=== PATIENT | male | born 1965 | race Caucasian/White ===

== ENCOUNTER 2019-07-30 12:56 | Inpatient (IN) | payer OTHER ==
[~2019-07-30] VITALS: Ht 177.8 cm; Wt 152.0 kg
[2019-07-30 12:57] VITALS: BP 138/93
[2019-07-30 13:28] LABS: ABSOLUTE NEUTROPHILS 5.7 thou/uL (1.4-8.2); BASOPHILS 0.5 % (0.0-2.0); EOSINOPHILS 2.5 % (0.0-3.0); HEMATOCRIT 49.4 % (42.0-52.0); LYMPHOCYTES 12.5 % (24.0-44.0); MCHC 34.4 g/dL (28.0-37.0); MCV 92.8 fL (80.0-100.0); MONOCYTES 7.7 % (1.0-8.0); PLATELET COUNT 194 thou/uL (150-400); POLYS 76.8 % (36.0-66.0); RBC 5.32 mil/uL (4.50-6.00); WBC 7.4 thou/uL (4.0-11.0)
[2019-07-30] MEDS ORDERED: SINGULAIR 10 MG10 MG PO (13:35)
[2019-07-30] MEDS ORDERED: OLMESARTAN PO (13:36)
[2019-07-30] MEDS ORDERED: DICLOFENAC SODI75 MG PO (13:36)
[2019-07-30] MEDS ORDERED: NORVASC10 MG PO (13:36)
[2019-07-30] MEDS ORDERED: CARVEDILOL12.5 MG PO (13:37)
[2019-07-30] MEDS ORDERED: CLARITIN10 M2 PO (13:37)
[2019-07-30] MEDS ORDERED: ADVAIR 250-501 EACH INH (13:38)
[2019-07-30] MEDS ORDERED: ADVAIR 500-501 EACH INH (13:38)
[2019-07-30] MEDS ORDERED: CALCIUM500 MG PO (13:38)
[2019-07-30 13:39] LABS: ANION GAP 10 mmol/L (7-16); BUN 18 mg/dL (7-18); CALCIUM 9.7 mg/dL (8.5-10.1); CHLORIDE 106 mmol/L (98-107); CO2 26 mmol/L (21-32); CREATININE 0.9 mg/dL (0.7-1.3); GLUCOSE 106 mg/dL (74-106); POTASSIUM 4.2 mmol/L (3.5-5.1); SODIUM 142 mmol/L (136-145)
[2019-07-30] MEDS ORDERED: DEPO-TESTO100 MG/1 M IM (13:39)
[2019-07-30 13:49] LABS: ALBUMIN 4.3 g/dL (3.4-5.0); LIPASE 105 U/L (73-393); SGOT 24 U/L (15-37); SGPT 54 U/L (30-65); TOTAL PROTEIN 7.7 g/dL (6.4-8.2); TROPONIN-I <0.06 ng/mL (<0.06)
[2019-07-30 14:11] VITALS: BP 140/79
--- NOTE | 2019-07-30 14:37 | EKG ---
[facility] [place] [address] ELECTROCARDIOGRAM REPORT Name: LEANDERCASIE IsidroTIFFANIE E Room #: 170-4 ADM IN M.R.#: [id number] Admission: 07/30/19 Attend Phys: Tali Pitno Discharge: Date of : 61 Report #: [id number] THIS REPORT FOR: cc: NINA ALFARO Luis F. MD ~ THIS REPORT FOR: //name// [facility] ED Test Date: 2019-07-30 Test Time: 13:01:35 Pat Name: TIFFANIE BRAR Department: Room: [facility] Gender: M Director Independent: ANDREWS : 1965 Requested By: Maya Orellana Order Number: [id number] MD: Renzo Escalera Measurements Intervals [place] Rate: 70 P: -32 MT: 161 QRS: -27 QRSD: 82 T: 65 QT: 341 QTc: 368 Interpretive Statements Sinus rhythm LVH by voltage Inferior infarct, old Compared to ECG 10/17/2006 18:06:35 Left ventricular hypertrophy now present Myocardial infarct finding now present Electronically Signed On 07-30-2019 14:35:26 CDT by Renzo Escalera [email or web address] <ELECTRONICALLY SIGNED> By: Renzo Escalera MD 07/30/19 1435 1301 1301 Renzo Escalera MD /EPI
[2019-07-30 16:39] VITALS: BP 151/88
[2019-07-30 17:40] VITALS: BP 141/85
--- NOTE | 2019-07-30 18:46 | NUR ---
NEW ADMIT FROM ED FOR ANGINA, PT ALERTX4, FROM HOME. DENIES CHEST PAINM, DENIES SOB, HOME MEDS RECONCILED, CONSENT SIGNED FOR CARDIAC CATH, AB GHASSAN T0 BATHROOM. ORRIENTED TO ROOM. ADMISSION ASSESMENT, HISTORY, AND EDUCATION. PT TO HAVE CARDIAC CATH 07/[address] KOHLER. CALL LIGHT AND PERSONAL ITEMS IN REACH.
[2019-07-30 19:47] LABS: CHOLESTEROL 183 mg/dL (<200); HDL CHOLESTEROL 45 mg/dL (>40); LDL CHOLESTEROL 127 mg/dL (<100); TC:HDL 4.1 Ratio (Not establshd); TRIGLYCERIDE 55 mg/dL (<150); VLDL 11 mg/dL (<40)
[2019-07-30 20:15] VITALS: BP 150/80
[2019-07-31] VITALS (13 sets, daily range): BP systolic 121–183; BP diastolic 63–91
[2019-07-31 05:25] LABS: CREATININE 0.9 mg/dL (0.7-1.3); POTASSIUM 4.1 mmol/L (3.5-5.1)
--- NOTE | 2019-07-31 12:15 | 2DMMODE ---
[facility] [place] [address] 2 D/M-MODE ECHOCARDIOGRAM Name: TIFFANIE BRAR Candido Room #: 210-P ADM IN M.R.#: [id number] Admission: 07/30/19 Attend Phys: Tali Pinto Discharge: Date of : 61 Report #: [id number] THIS REPORT FOR: cc: NINA ALFARO,Godfrey Marsh MD [facility] ~ APPROVED REPORT Study performed: 07/31/2019 09:54:15 EXAM: Comprehensive 2D, Doppler, and color-flow Echocardiogram Patient Location: Bedside Room #: 210 Status: routine BSA: 2.58 HR: 61 bpm BP: 148/85 mmHg Rhythm: NSR Other Information Study Quality: Adequate Technically limited study due to morbid obesity. Indications Chest pain. Status post angiogram with PCI. Hx: HTN, HLD, morbid obesity, family hx CAD. 2D Dimensions RVDd: 43.49 mm IVSd: 14.05 (7-11mm) LVOT Diam: 22.60 (18-24mm) LVDd: 52.32 mm PWd: 11.73 (7-11mm) LVDs: 33.28 (25-40mm) Aortic Root: 35.46 mm Volumes Left Atrial Volume (Systole) Single Plane 4CH: 70.98 mL Single Plane 2CH: 87.76 mL LA ESV Index: 33.00 mL/m2 Aortic Valve AoV Peak Sharath.: 4.02 m/s AO Peak Gr.: 64.53 mmHg LVOT Max P.16 mmHg AO Mean Gr.: 43.25 mmHg [facility] [address] [place] [address] 2 D/M-MODE ECHOCARDIOGRAM Name: TIFFANIE BRAR Room #: 210-P [id number] Admission: 07/30/19 Attend Phys: Tali Bangura May Discharge: Date of : 61 Report #: [id number] AO V2 Mean: 3.20 m/s LVOT Max V: 1.02 m/s AO V2 VTI: 101.73 cm MARINE Vmax: 1.02 cm2 Mitral Valve E/A Ratio: 1.2 MV Decel. Time: 271.75 ms MV E Max Sharath.: 0.92 m/s MV A Sharath.: 0.76 m/s MV PHT: 78.81 ms IVRT: 76.12 ms Pulmonary Valve PV Peak Sharath.: 0.96 m/s PV Peak Gr.: 3.72 mmHg Pulmonary Vein P Vein S: 0.47 m/s P Vein A: 0.30 m/s P Vein D: 0.49 m/s P Vein A Dur.: 133.8 msec P Vein S/D Ratio: 0.96 Tricuspid Valve RAP Estimate: 5.00 mmHg Left Ventricle The left ventricle is normal size. There is normal LV segmental wall motion. Mild concentric left ventricular hypertrophy. Left ventricular systolic function is normal. LVEF is 60-65%. Moderate diastolic dysfunction is present (pseudonormal filling). Right Ventricle Right ventricle is at the upper limits of normal. The right ventricular systolic function is normal. Atria Both atria measure at the upper limits of normal. Aortic Valve Aortic valve is heavily thickened and calcified, moderate to severe valvular aortic stenosis. No aortic regurgitation is present. Calculated aortic valve area is 1.0 cm2 (Peak pressure gradient of 65 mmHg, mean pressure gradient of 43 mmHg). Mitral Valve Mild mitral annular calcification. Mild mitral regurgitation. No evidence of mitral valve stenosis. [facility] [address] [place] [address] 2 D/M-MODE ECHOCARDIOGRAM Name: TIFFANIE BRAR Candido Room #: 210-P [facility] IN M.R.#: [id number] Admission: 07/30/19 Attend Phys: Tali Strange Discharge: Date of : 61 Report #: [id number] Tricuspid Valve The tricuspid valve is normal in structure. There is no tricuspid valve regurgitation noted. Pulmonic Valve Pulmonic valve is not well visualized. Great Vessels The aortic root is normal in size. Ascending aorta is not well visualized. IVC is normal in size and collapses >50% with inspiration. Pericardium There is no pericardial effusion. <Conclusion> Left ventricular systolic function is normal. There is normal LV segmental wall motion. LVEF is 60-65%. Moderate diastolic dysfunction Aortic valve is heavily thickened and calcified, moderate to severe valvular aortic stenosis. No aortic insufficiency Calculated aortic valve area is 1.0 cm2 (Peak pressure gradient of 65 mmHg, mean pressure gradient of 43 mmHg). Mild mitral annular calcification. Mild mitral regurgitation. Pulmonary artery systolic pressure could not be reliably ascertained. There is no pericardial effusion. <ELECTRONICALLY SIGNED> By: Godfrey Oakley MD, FACC 07/31/19 1213 12 12 Godfrey Oakley MD, FACC /INF
--- NOTE | 2019-07-31 13:50 | NUR ---
PATIENT DENIES ANY PAIN THIS SHIFT. RECEIVED CATH PROCEDURE WITH STENT PLACEMENT. CATH SITE TO RIGHT GROIN. PATIENT REMAINED BEDREST UNTIL CLEARED. CATH SITE SHOWED SOME MINIMAL OOZING AND DRESSING BECAME LOOSE. APPLIED PRESSURE AND REDRESSED SITE, NO OOZING NOTED AFTER DRESSING CHANGE. PATIENT UP AD GHASSAN WITH STEADY BALANCED GAIT. PATIENT DENIES ANY FEELINGS OF LIGHT HEADED OR DIZZINESS. URINARY OUTPUT IS ADEQUATE AND CHARTED. PATIENT PROGRESSING TOWARDS GOALS FOR DISCHARGE.
[2019-08-01 03:30] VITALS: BP 156/80
--- NOTE | 2019-08-01 04:12 | NUR ---
PATIENT IS PROGRESSING RAPIDLY IN HIS CARE PLAN. VITAL SIGNS STABLE WITH PATIENT HAVING NO COMPLAINTS OF PAIN (CHEST OR OTHERWISE). FULLY ORIENTED, PATIENT IS ABLE TO CALL APPROPRIATELY FOR NEEDS AND PARTICIPATE IN CARE. CATH SITE REMAINS CLEAN, DRY, AND INTACT WITH NO SIGNS OR SYMPTOMS OF HEMATOMA. PATIENT DID COMPLAIN OF SHORTNESS OF AIR ONCE DURING SHIFT, BUT ATTRIBUTED IT TO HIS ASTHMA. SYMPTOMS RELIEVED WITH BREATHING TREATMENTS. UP AD GHASSAN THROUGHOUT SHIFT INCIDENT FREE. PATIENT IS STRONG AND BALANCED WHEN WALKING. PATIENT IS ANXIOUS FOR PROBABLE DISCHARGE TODAY. CONTINUE PLAN OF CARE.
[2019-08-01 06:26] LABS: HEMATOCRIT 48.6 % (42.0-52.0); HEMOGLOBIN 16.6 gm/dL (14.0-18.0); MCHC 34.2 g/dL (28.0-37.0); MCV 93.5 fL (80.0-100.0); RBC 5.2 mil/uL (4.50-6.00); RDW 13.1 % (10.5-14.5); WBC 8.1 thou/uL (4.0-11.0)
[2019-08-01 06:45] LABS: ALBUMIN 3.8 g/dL (3.4-5.0); CALCIUM 8.8 mg/dL (8.5-10.1); CREATININE 0.9 mg/dL (0.7-1.3); POTASSIUM 4.1 mmol/L (3.5-5.1); TOTAL BILIRUBIN 1.3 mg/dL (0.2-1.0); TOTAL PROTEIN 7.3 g/dL (6.4-8.2); TROPONIN-I 0.35 ng/mL (<0.06)
[2019-08-01] MEDS ORDERED: LIPITOR40 MG PO (07:11)
[2019-08-01] MEDS ORDERED: ASPIRIN325 PO (07:11)
[2019-08-01] MEDS ORDERED: EFFIENT10 MG PO (07:11)
[2019-08-01] MEDS ORDERED: CARVEDILOL3.125 MG PO (07:11)
--- NOTE | 2019-08-01 08:03 | EKG ---
[facility] [place] [address] ELECTROCARDIOGRAM REPORT Name: TIFFANIE BRAR Room #: 210-P ADM IN M.R.#: [id number] Admission: 07/30/19 Attend Phys: Tali Pinto Discharge: Date of : 61 Report #: [id number] THIS REPORT FOR: cc: NINA ALFARO Craig H. MD [facility] THIS REPORT FOR: //name// [facility] Test Date: 2019-07-31 Test Time: 10:31:13 Pat Name: TIFFANIE BRAR Department: Room: 210 P Gender: M Director Of Convention Services: Stevan VILLAREAL : 1965 Requested By: Prasad Hernandes Order Number: [id number] MD: Godfrey Oakley Measurements Intervals [place] Rate: 60 P: -22 IA: 175 QRS: -29 QRSD: 94 T: 36 QT: 402 QTc: 402 Interpretive Statements Sinus rhythm Inferior infarct, old Compared to ECG 07/30/2019 13:01:35 No significant change was found Electronically Signed On 08-01-2019 8:01:10 CDT by Godfrey Oakley [email or web address] <ELECTRONICALLY SIGNED> By: Godfrey Oakley MD, [facility] 08/01/19 0801 1031 1031 Godfrey Oakley MD, [facility] /EPI
[2019-08-01 08:30] VITALS: BP 155/74
[2019-08-01] MEDS ORDERED: BENICAR40 MG PO (08:34)
--- NOTE | 2019-08-01 09:22 | EKG ---
[facility] [place] [address] ELECTROCARDIOGRAM REPORT Name: TIFFANIE BRAR Room #: 210-P ADM IN M.R.#: [id number] Admission: 07/30/19 Attend Phys: Tali Pinto Discharge: Date of : 61 Report #: [id number] THIS REPORT FOR: cc: NINA ALFARO Craig H. MD [facility] THIS REPORT FOR: //name// [facility] Test Date: 2019-08-01 Test Time: 07:33:24 Pat Name: TIFFANIE BRAR Department: Room: 210 P Gender: M Microbiology Supervisor: Stevan VILLAREAL : 1965 Requested By: Prasad Hernandes Order Number: [id number] MD: Godfrey Oakley Measurements Intervals [place] Rate: 67 P: -16 VA: 168 QRS: -26 QRSD: 83 T: 52 QT: 389 QTc: 411 Interpretive Statements Sinus rhythm Poor R wave progression Compared to ECG 07/30/2019 13:01:35 No significant change was found Electronically Signed On 08-01-2019 9:20:24 CDT by Godfrey Oakley [email or web address] <ELECTRONICALLY SIGNED> By: Godfrey Oakley MD, [facility] 08/01/19 0920 0733 Godfrey Oakley MD, [facility] /EPI
--- NOTE | 2019-08-01 10:30 | NUR ---
RECEIVED PT'S CARE AROUND 0710; PT. ON BED; AOX4; NO HEMATOMA AROUND R. GROIN AREA; DRESSING C/D/I; DURING AM ASSESSMENT NO C/O PAIN; AM MEDICATIONS GIVEN; SR ON THE MONITOR; D/C ORDERS ON PLACED; PT. NOTIFIED; ST. WILL PICK HIM UP AFTER 1300; CHARGE NURSE NOTIFIED; WORKING ON D/C ORDERS; ASSESSMET CHARGED; FOLLOWED POC;
[2019-08-01 10:34] VITALS: BP 155/74
[2019-08-01 11:25] VITALS: BP 138/90
--- NOTE | 2019-08-02 16:55 | CATHLAB ---
[facility] [place] [address] INVASIVE PROCEDURE REPORT Name: TIFFANIE BRAR Room #: 210-P [facility] IN M.R.#: [id number] Admission: 07/30/19 Attend Phys: Tali Pinto Discharge: 08/01/19 Date of : 61 Report #: [id number] THIS REPORT FOR: cc: NINA ALFARO Gerald M. MD [facility] ~ APPROVED REPORT Study performed: 07/31/2019 07:30:12 Patient Details Patient Status: In-Patient Room #: The patient is a 54 year-old male Event Personnel Prasad Hernandes Line Appliance Assembler, Renny Chopra RN RN, Delio Hidalgo RN, Diana Lantigua Monitor, Tiffany Koenig RTR, Dylan Chi Sherra RTR Monitor Procedures Performed Art Access - R femoral artery* Left Heart Cath w/or w/o Coronaries [id number] [facility] [address] Initial Mod Sed Same Phys/QHP Gr5y 368190 57476 Mod Sed Same Phys/QHP Ea 658359 Hemostasis w/ Mynx Aortogram Abdominal Peripheral Angio 574174 Indication Chest pain Procedure Narrative The Right Groin^ was infiltrated with 1% Lidocaine subcutaneous anesthesia. A PINNACLE 6FR Sheath #[id number] sheath was inserted into the RFA^. Coronary angiography was performed using coronary diagnostic catheters. The right coronary system was accessed and visualized with a JR4 catheter. The left coronary system was accessed and visualized with a JL4 catheter. The left ventricle was accessed and visualized with a PIGTAIL catheter. An aortogram of the abdominal aorta was performed. Closure device was deployed with a 6 Fr MYNXGRIP 6/7F #[id number]. The patient tolerated the procedure well and there were no complications associated with the procedure. There was no hematoma. Intraoperative Conscious Sedation Sedation start time: 813 Case end Time: 929 Fentanyl 50 mcg Versed 2 mg [facility] [place] [employer] [place] [address] INVASIVE PROCEDURE REPORT Name: TIFFANIE BRAR Room #: 210-P [facility] IN ..#: [id number] Admission: 07/30/19 Attend Phys: Tali Strange Discharge: 08/01/19 Date of : 61 Report #: [id number] Fluoro Time: 14.42 minutes Dose: DAP 70838.70 cGycm2 3463 mGy Contrast Type and Amount: Omnipaque 310 ml Hemodynamics The aortic pressure is 180/98 mmHg with a mean of 132 mmHg. The left ventricular pressure is 212/4 mmHg with a mean of mmHg. The left ventricular end diastolic pressure is 25 mmHg. PCI Technique Lesion Percutaneous coronary intervention was performed on the mid left anterior descending artery segment. A LAUNCHER 6FR EBU 4 #[id number] Guide Catheter was used to engage the ostium. A Luge Wire .014 x 182CM #[id number] Interventional Guidewire was used to cross the lesion. BALLOON DILATION A Balloon catheter Sprinter OTW 2.5 x 12 #[id number] was inserted and inflated up to 10.00atm for 13seconds. Additional Inflation: 10.00atm for 15seconds. Additiona balloon was 3.0x12 sprinter OTW, 10 SPENCER@11 secs:12ATM@38 secs:14 SPENCER @52 secs STENT DEPLOYMENT A drug-eluting stent RESOLUTE STEFAN OTW 3.0 X 15 #[id number] was inserted and inflated up to 14.00atm for 28seconds. Stent to the Diag was a 2.75 x8 Resolute Stefan 14 SPENCER @17 secs Conclusion 1. Successful PTCA stent of a high-grade proximal LAD lesion with a 3 oh by 15 resolute stefan drug-eluting stent to 3.6 mm MEREDITH grade III flow #2 successful PTCA stent of the 90% proximal diagonal stenosis just off of the LAD a moderate size vessel 2.75 x 8 Stefan drug-eluting stent MEREDITH grade III flow 0% residual #3 left main with mild irregularities giving rise to the LAD and circumflex. Mildly diseased #4 nondominant circumflex OM with mild irregularities #5 large dominant right coronary artery mildly ectatic extensive distribution in the inferior inferior lateral wall no occlusive disease #6 left renal artery with significant fibromuscular disease does not appear to be flow-limiting but will evaluate noninvasively. This is in the very proximal portion off the ostium of this left renal artery and involving the significant midsection and moderate Tab dilated. #7 right renal artery widely patent and then the mid distal main [address] [address] INVASIVE PROCEDURE REPORT Name: TIFFANIE BRAR Room #: 210-P DIS IN M.R.#: [id number] Admission: 07/30/19 Attend Phys: Tali Strange Discharge: 08/01/19 Date of : 61 Report #: [id number] trunk has moderate fibromuscular disease but to a lesser extent than the left system #8 normal left ventricular size and systolic function EF 60% #9 abdominal aortogram intact without significant aneurysm. Mild plaquing. Recommendations plan: Continue aggressive risk factor modification. Dual antiplatelet therapy has been initiated. Patient is hemodynamically stable pain-free upon transfer to CCU. Follow post stent protocol. <ELECTRONICALLY SIGNED> By: Prasad Hernandes MD, FACC 08/02/191652 52 52 Prasad Hernandes MD, FACC /INF
== END 2019-08-01 14:52 | disposition home or self-care (01) | DRG 246 ==
LOC: ER 12:56 → 2N 14:10 → EROBS 14:10 → 2N 16:39
PROVIDERS: Internal Medicine Cardiovascular Disease; Nurse Practitioner Family; ADMIT Hospitalist; ATTEND Hospitalist
PROC: 027034Z Dilation of Coronary Artery, One Artery with Drug-eluting Intraluminal Device, Percutaneous Approach (ICD-10-PCS; principal; 2019-07-31)
PROC: B4101ZZ Fluoroscopy of Abdominal Aorta using Low Osmolar Contrast (ICD-10-PCS; principal; 2019-07-31)
PROC: B2111ZZ Fluoroscopy of Multiple Coronary Arteries using Low Osmolar Contrast (ICD-10-PCS; principal; 2019-07-31)
PROC: 4A023N7 Measurement of Cardiac Sampling and Pressure, Left Heart, Percutaneous Approach (ICD-10-PCS; principal; 2019-07-31)
DX: I25.118 Atherosclerotic heart disease of native coronary artery with other forms of angina pectoris (principal); I50.31 Acute diastolic (congestive) heart failure; Z68.42 Body mass index [BMI] 45.0-49.9, adult; E66.9 Obesity, unspecified; I10 Essential (primary) hypertension; J45.909 Unspecified asthma, uncomplicated; M19.90 Unspecified osteoarthritis, unspecified site; I73.9 Peripheral vascular disease, unspecified; E78.5 Hyperlipidemia, unspecified; Z96.649 Presence of unspecified artificial hip joint; R91.1 Solitary pulmonary nodule; I35.0 Nonrheumatic aortic (valve) stenosis; Z79.899 Other long term (current) drug therapy; Z82.49 Family history of ischemic heart disease and other diseases of the circulatory system
CPT/HCPCS: 10081

== ENCOUNTER → 2019-11-01 | Outpatient (CLI) | payer OTHER ==
[~2019-11-01] MED LIST: ADVAIR 250-501 EACH INH; ADVAIR 500-501 EACH INH; ASPIRIN325 PO; BENICAR40 MG PO; CALCIUM500 MG PO; CARVEDILOL12.5 MG PO; CARVEDILOL3.125 MG PO; CLARITIN10 M2 PO; DEPO-TESTO100 MG/1 M IM; DICLOFENAC SODI75 MG PO; EFFIENT10 MG PO; LIPITOR40 MG PO; NORVASC10 MG PO; OLMESARTAN PO; SINGULAIR 10 MG10 MG PO
== END ==
LOC: SJCVCIMAG 09:19
PROVIDERS: ATTEND Internal Medicine Cardiovascular Disease
DX: I25.10 Atherosclerotic heart disease of native coronary artery without angina pectoris (principal); I10 Essential (primary) hypertension; E78.5 Hyperlipidemia, unspecified; I35.0 Nonrheumatic aortic (valve) stenosis

== ENCOUNTER → 2020-01-09 | Outpatient (CLI) | payer OTHER | LOC: SJCVCIMAG 07:53 | PROVIDERS: ATTEND Internal Medicine Cardiovascular Disease | DX: I35.1 Nonrheumatic aortic (valve) insufficiency (principal); I25.10 Atherosclerotic heart disease of native coronary artery without angina pectoris; J45.909 Unspecified asthma, uncomplicated; I10 Essential (primary) hypertension; Z95.5 Presence of coronary angioplasty implant and graft ==

== ENCOUNTER → 2021-01-05 | Outpatient (CLI) | payer OTHER | LOC: SJCVCIMAG 07:52 | PROVIDERS: ATTEND Internal Medicine Cardiovascular Disease | DX: I08.0 Rheumatic disorders of both mitral and aortic valves (principal); R94.31 Abnormal electrocardiogram [ECG] [EKG]; I10 Essential (primary) hypertension; E78.00 Pure hypercholesterolemia, unspecified; I25.10 Atherosclerotic heart disease of native coronary artery without angina pectoris; U07.1 COVID-19; I87.2 Venous insufficiency (chronic) (peripheral); M19.90 Unspecified osteoarthritis, unspecified site; E66.9 Obesity, unspecified; E78.5 Hyperlipidemia, unspecified; Z98.890 Other specified postprocedural states; Z72.89 Other problems related to lifestyle; Z79.899 Other long term (current) drug therapy ==

== ENCOUNTER → 2021-01-05 | Outpatient (CLI) | payer OTHER | LOC: RAD 13:22 | PROVIDERS: ATTEND Internal Medicine Cardiovascular Disease | DX: Z13.6 Encounter for screening for cardiovascular disorders (principal); I25.10 Atherosclerotic heart disease of native coronary artery without angina pectoris; E78.00 Pure hypercholesterolemia, unspecified ==